=== PATIENT | female | born 1940 | race Caucasian/White ===

== ENCOUNTER 2018-06-25 13:43 | Emergency (ER) | payer MEDICARE ==
[~2018-06-25 13:43] MED LIST: FLEC100T2 PO; HCTZ25T PO; POTA10TA15 PO; RIVA20TA PO
[2018-06-25 13:54] VITALS: BP 141/79
[2018-06-25] MEDS ORDERED: LIDOcaine 1.5% w/epinephrine 1:200,000 5ml ampul IJ ONE (14:30)
[2018-06-25] MEDS ORDERED: TETanus/Pertussis (Acell)/Diphther VAC/PF (Tdap-Adult) 0.5ml syringe IM ONE (14:30)
[2018-06-25] MEDS ORDERED: LIDOcaine 1% w/epiNEPHrine 1:200,000 30ml vial IJ ONE (14:35)
== END 2018-06-25 15:28 | disposition home or self-care (01) ==
LOC: ER 13:44
DX: S61.011A Laceration without foreign body of right thumb without damage to nail, initial encounter (principal); I10 Essential (primary) hypertension; I48.91 Unspecified atrial fibrillation; Z90.49 Acquired absence of other specified parts of digestive tract; Z90.89 Acquired absence of other organs; Z79.899 Other long term (current) drug therapy; W23.0XXA Caught, crushed, jammed, or pinched between moving objects, initial encounter; Y93.89 Activity, other specified; Y92.89 Other specified places as the place of occurrence of the external cause; Y99.8 Other external cause status
CPT/HCPCS: 12001; 73140; 90471; 90715; 99283; J3490

== ENCOUNTER 2020-03-20 14:39 | Emergency (ER) | payer MEDICARE ==
[~2020-03-20] VITALS: Ht 162.6 cm; Wt 82.3 kg
[~2020-03-20 14:39] MED LIST changes: +CHOL10002 PO; +LEVO750T46 PO; +MECL-159 PO; -RIVA20TA PO
[2020-03-20 15:52] LABS: BASOPHILS # (AUTO) 0.1 X10'3 (0-0.2); BASOPHILS % (AUTO) 0.7 % (0-1); EOSINOPHILS % (AUTO) 0.3 % (0-6); HEMATOCRIT 42.5 % (35.0-45.0); HEMOGLOBIN 14.5 g/dl (12.0-16.0); LYMPHOCYTES # (AUTO) 1.2 X10'3 (1.1-4.8); LYMPHOCYTES % (AUTO) 8.9 % (21-51); MEAN PLATELET VOLUME 7.9 FL (7.4-10.4); MONOCYTES # (AUTO) 0.8 X10'3 (0-0.9); MONOCYTES % (AUTO) 5.7 % (2-12); NEUTROPHILS # (AUTO) 11.4 X10'3 (1.8-7.7); NEUTROPHILS % (AUTO) 84.4 % (42-75); PLATELET COUNT 110 X10'3 (140-440); RED BLOOD COUNT 4.83 X10'6 (4.20-5.60); WHITE BLOOD COUNT 13.5 X10'3 (4.5-11.0)
[2020-03-20 16:13] LABS: ALANINE AMINOTRANSFERASE 26 U/L (12-78); ALBUMIN 3.5 G/DL (3.4-5.0); ALBUMIN/GLOBULIN RATIO 0.8 (1.1-1.5); ALKALINE PHOSPHATASE 77 IU/L (46-116); ANION GAP 14 (8-16); ASPARTATE AMINO TRANSFERASE 29 U/L (10-37); BILIRUBIN,TOTAL 1.9 MG/DL (0.1-1.0); BLOOD UREA NITROGEN 22 MG/DL (7-18); BUN/CREATININE RATIO 22.7 (6.6-38.0); CHLORIDE 99 MMOL/L (99-107); CREATININE 0.97 MG/DL (0.40-0.90); POTASSIUM 3.1 MMOL/L (3.5-5.1); SODIUM 138 MMOL/L (135-145); TOTAL CARBON DIOXIDE 25.2 MMOL/L (24-32); TOTAL PROTEIN 8.1 G/DL (6.4-8.2); eGFR 55 ML/MIN
[2020-03-20 16:14] LABS: GLUCOSE 103 MG/DL (70-104)
[2020-03-20 16:22] LABS: LIPASE < 50 U/L (73-393); MAGNESIUM 1.6 MG/DL (1.5-2.4)
[2020-03-20] MEDS ORDERED: AMOX-422 PO (17:29)
[2020-03-20 17:42] VITALS: BP 139/94
[2020-03-20 17:43] LABS: CLARITY,URINE TURBID (Clear); COLOR,URINE YELLOW (Yellow); GLUCOSE, URINE NEGATIVE (Neg); KETONES,URINE 15 mg/dl (Neg); LEUKOCYTE ESTERASE ,URINE MODERATE (Neg); NITRITES, URINE NEGATIVE (Neg); OCCULT BLOOD,URINE SMALL (Neg); PROTEIN,URINE 30 mg/dl (Neg)
[2020-03-20 17:47] LABS: UA COLLECTION TYPE CLN CATCH MIDSTREAM
[2020-03-20 17:53] LABS: SQUAMOUS EPITHELIAL CELL,UR MANY /LPF (FEW)
[2020-03-20 17:54] LABS: BACTERIA,URINE 4+ /HPF (Neg); MUCUS STRANDS FEW /LPF (Neg); RBC,URINE 0-2 /HPF (0-2); TRANSITIONAL EPI CELLS,URINE FEW /HPF; WBC,URINE TNTC /HPF (0-4)
== END 2020-03-20 17:44 | disposition home or self-care (01) ==
LOC: ER 14:40
DX: K57.10 Diverticulosis of small intestine without perforation or abscess without bleeding (principal); I48.91 Unspecified atrial fibrillation; I10 Essential (primary) hypertension; Z90.49 Acquired absence of other specified parts of digestive tract; Z98.890 Other specified postprocedural states; Z79.899 Other long term (current) drug therapy
CPT/HCPCS: 36415; 70450; 71045; 74176; 80053; 81001; 83690; 83735; 83880; 84484; 85025; 93005; 99285

== ENCOUNTER 2021-10-03 04:59 | Inpatient (IN) | payer MEDICARE ==
[~2021-10-03] VITALS: Ht 162.6 cm; Wt 81.8 kg
[~2021-10-03 04:59] MED LIST changes: -HCTZ25T PO; +HYDR25TA5 PO
[2021-10-03] MEDS ORDERED: fentaNYL/PF 50MCG/1 ML 2ML syringe IV ONE (05:25)
[2021-10-03] MEDS ORDERED: normal saline 1000ml 1,000 ML IV ONE (05:25)
--- NOTE | 2021-10-03 05:40 | NUR ---
ADVISED DR FONTANA OF PT'S ELEVATED BP AND PT'S PAIN LEVEL
[2021-10-03 05:48] LABS: BASOPHILS % (AUTO) 0.7 % (0-1); EOSINOPHILS # (AUTO) 0.1 X10'3 (0-0.9); EOSINOPHILS % (AUTO) 1.1 % (0-6); HEMATOCRIT 37.1 % (35.0-45.0); HEMOGLOBIN 12.2 g/dl (12.0-16.0); LYMPHOCYTES % (AUTO) 14.4 % (21-51); MEAN CORPUSCULAR HEMOGLOBIN 29.5 PG (27.0-31.0); MEAN CORPUSCULAR HGB CONC 32.9 g/dL (33.0-36.5); MEAN CORPUSCULAR VOLUME 89.8 FL (78-98); MEAN PLATELET VOLUME 8.5 FL (7.4-10.4); MONOCYTES # (AUTO) 0.5 X10'3 (0-0.9); MONOCYTES % (AUTO) 6.5 % (2-12); NEUTROPHILS # (AUTO) 5.5 X10'3 (1.8-7.7); NEUTROPHILS % (AUTO) 77.3 % (42-75); PLATELET COUNT 106 X10'3 (140-440); RED BLOOD COUNT 4.14 X10'6 (4.20-5.60); RED CELL DISTRIBUTION WIDTH 17.8 % (11.5-14.5); WHITE BLOOD COUNT 7.2 X10'3 (4.5-11.0)
[2021-10-03 06:01] LABS: ALANINE AMINOTRANSFERASE 23 U/L (12-78); ALBUMIN 3.1 G/DL (3.4-5.0); ALBUMIN/GLOBULIN RATIO 0.9 (1.1-1.5); ALKALINE PHOSPHATASE 82 IU/L (46-116); ANION GAP 11 (8-16); BILIRUBIN,TOTAL 0.9 MG/DL (0.1-1.0); BLOOD UREA NITROGEN 11 MG/DL (7-18); BUN/CREATININE RATIO 15.1 (6.6-38.0); CALCIUM 8.9 MG/DL (8.5-10.1); CHLORIDE 105 MMOL/L (99-107); CREATININE 0.73 MG/DL (0.40-0.90); LIPASE < 50 U/L (73-393); SODIUM 143 MMOL/L (135-145); TOTAL CARBON DIOXIDE 27.3 MMOL/L (24-32); TOTAL PROTEIN 6.6 G/DL (6.4-8.2); eGFR 76 ML/MIN
[2021-10-03 06:09] LABS: ASPARTATE AMINO TRANSFERASE 38 U/L (10-37); GLUCOSE 105 MG/DL (70-104); POTASSIUM 3.2 MMOL/L (3.5-5.1)
[2021-10-03 06:12] LABS: CLARITY,URINE CLEAR (Clear); GLUCOSE, URINE NEGATIVE (Neg); KETONES,URINE NEGATIVE (Neg); LEUKOCYTE ESTERASE ,URINE NEGATIVE (Neg); NITRITES, URINE NEGATIVE (Neg); OCCULT BLOOD,URINE TRACE-INTACT (Neg); PROTEIN,URINE NEGATIVE (Neg); UROBILINOGEN,URINE 0.2 E.U/dL (0.2-1.0)
[2021-10-03 06:18] LABS: COLOR,URINE STRAW (Yellow); UA COLLECTION TYPE CLN CATCH MIDSTREAM
[2021-10-03 06:20] LABS: BACTERIA,URINE NONE SEEN /HPF (Neg); MUCUS STRANDS NONE SEEN /LPF (Neg); RBC,URINE 0-2 /HPF (0-2); SQUAMOUS EPITHELIAL CELL,UR FEW /LPF (FEW); WBC,URINE 0-4 /HPF (0-4)
--- NOTE | 2021-10-03 07:00 | NUR ---
PT TO/FROM CT WITHOUT INCIDENT.
[2021-10-03 07:05] LABS: ETHANOL < 0.010 GM/DL (0.0-0.010); MAGNESIUM 1.5 MG/DL (1.5-2.4)
[2021-10-03] MEDS ORDERED: potassium CL 10mEq/100ml bag 100 ML IV ONE (07:15)
[2021-10-03] MEDS ORDERED: normal saline 1000ML IV soln IVB ONE (07:15)
[2021-10-03] MEDS ORDERED: magnesium 2GM in 50ml NS 50 ML IV ONE (07:15)
[2021-10-03] MEDS ORDERED: ondansetron/PF 4mg/2ml inj IV ONE (08:20)
[2021-10-03] MEDS ORDERED: ketorolac tromethamine 15mg/ml inj. IV ONE (08:20)
--- NOTE | 2021-10-03 09:50 | NUR ---
FOUND PT SITTING AT EDGE OF BED, STATES SHE IS TOO SICK TO GO HOME. REQUESTING TO BE ADMITTED D/T BEING IN PAIN AND FEELING SICK. WILL INFORM
--- NOTE | 2021-10-03 09:53 | NUR ---
DR. WOODSON AT BEDSIDE.
[2021-10-03] MEDS ORDERED: metroNIDAZOLE-Flagyl 500mg/NS 100 ML IV STA (10:08)
[2021-10-03] MEDS ORDERED: morphine 4 MG/ML inj SYRINge IV ONE (10:10)
--- NOTE | 2021-10-03 10:20 | NUR ---
LAB AT BEDSIDE TO DRAW LACTIC AND FIRST BLOOD CULTURE. FLAGYL STARTED AFTER BLOOD DRAW. MORPHINE GIVEN PER EMAR, REPORTS PAIN 02/27.
[2021-10-03] MEDS ORDERED: ciprofloxacin lact 400MG/200ML 200 ML IV SCH ×2 (10:38→20:00)
--- NOTE | 2021-10-03 11:33 | NUR ---
Karin hall in [facility] - 10/03/21 at 1135 by [email or web address] PATIENT IS DISCHARGED AND ESCORTED TO [facility].
[2021-10-03] MEDS ORDERED: potassium Cl 20 mEq SR tablet PO PRN ×2 (12:15)
[2021-10-03] MEDS ORDERED: magnesium 4gm in 100ml NS 100 ML IV PRN (12:15)
[2021-10-03] MEDS ORDERED: bisacodyl 10mg suppository rectal RC PRN (12:15)
[2021-10-03] MEDS ORDERED: ondansetron/PF 4mg/2ml inj IV PRN (12:15)
[2021-10-03] MEDS ORDERED: mag hydrox/Alum hydrox/simeth 30ml oral suspension PO PRN (12:15)
[2021-10-03] MEDS ORDERED: diphenhydrAMINE 25mg capsule PO PRN (12:15)
[2021-10-03] MEDS ORDERED: morphine 2 MG/ML inj. syringe IV PRN (12:15)
[2021-10-03] MEDS ORDERED: magnesium 2GM in 50ml NS 50 ML IV PRN (12:15)
[2021-10-03] MEDS ORDERED: HYDROcodone/acetaminophen 10/325mg tab PO PRN (12:15)
[2021-10-03] MEDS ORDERED: HYDROcodone/acetaminophen 5mg/325mg tablet PO PRN (12:15)
[2021-10-03] MEDS ORDERED: magnesium hydroxide 30ml (MOM) UD suspension PO PRN (12:15)
[2021-10-03] MEDS ORDERED: acetaminophen 325mg tablet PO PRN ×2 (12:15)
[2021-10-03] MEDS ORDERED: acetaminophen 650mg rectal suppository RC PRN (12:15)
[2021-10-03] MEDS ORDERED: magnesium Cl slow-release 64mg tablet PO PRN (12:15)
[2021-10-03] MEDS ORDERED: RIVA20TA PO (12:26)
[2021-10-03] MEDS ORDERED: VALA100031 PO (12:26)
[2021-10-03] MEDS ORDERED: GABA300C PO (12:26)
[2021-10-03] MEDS ORDERED: HYDR-3973 PO (12:26)
[2021-10-03] MEDS: morphine 2 MG/ML inj. syringe IV PRN ×2 (12:35→21:43)
[2021-10-03] MEDS: normal saline 1000ml 1,000 ML IV SCH ×2 (12:36→21:25)
[2021-10-03 13:51] LABS: HEMOGLOBIN A1C 5.3 % (4.5-6.2)
--- NOTE | 2021-10-03 13:53 | NUR ---
telephone report to glynn ureda.
--- NOTE | 2021-10-03 14:00 | NUR ---
Patient in room MED 319. I have received report from Skye LEE and had the opportunity to ask questions and assume patient care.
[2021-10-03 14:36] VITALS: BP 161/82
[2021-10-03] MEDS: ciprofloxacin lact 400MG/200ML 200 ML IV SCH ×2 (14:38→23:53)
--- NOTE | 2021-10-03 16:05 | NUR ---
I spoke with Dr. Becerra about patient still being very nauseated despite zofran, he ordered reglan 5mg q8hrs.
[2021-10-03] MEDS: metoclopramide 5 mg/ml inj IV PRN (16:13)
[2021-10-03] MEDS: metroNIDAZOLE-Flagyl 500mg/NS 100 ML IV SCH ×2 (16:14→23:53)
[2021-10-03 17:30] VITALS: BP 145/98
[2021-10-03 18:00] VITALS: BP 145/98
--- NOTE | 2021-10-03 18:38 | NUR ---
Reglan 5mg administered, patient's nausous feeling subsided. Prescribed medication administered
--- NOTE | 2021-10-03 19:00 | NUR ---
Pt reports she has had shingles for 35 days. Everything is dry and crusted over, dark red rash remains.
[2021-10-03] MEDS: K and/or MAG REPLACEMENT MC SCH (19:51)
[2021-10-03] MEDS: docusate sod 100mg capsule PO SCH (19:52)
[2021-10-03] MEDS: gabapentin 300mg capsule PO SCH (19:52)
[2021-10-03] MEDS ORDERED: heparin, porcine 5000 units/ml vial SQ SCH (20:00)
[2021-10-03] MEDS: potassium CL 10mEq/100ml bag 100 ML IV PRN (21:24)
[2021-10-03 22:00] VITALS: BP 165/105
--- NOTE | 2021-10-04 01:45 | NUR ---
Pt with extreme back pain and nausea, continues to dry heave with some bile production. IV Zofran and morphine does not seem to be working. Contacted Dr Méndez who ordered dilaudid and ativan prn and per pt request SL Zofran.
[2021-10-04] MEDS ORDERED: ONDANSETRON IV PRN (01:55)
[2021-10-04] MEDS ORDERED: NORMAL SALINE IV PRN (01:55)
[2021-10-04 02:00] VITALS: BP 158/100
[2021-10-04] MEDS: gabapentin 300mg capsule PO SCH ×4 (02:00→20:00)
[2021-10-04] MEDS ORDERED: ondansetron/PF 4mg/2ml inj IV PRN (02:00)
[2021-10-04] MEDS: HYDROmorphone inj. 0.5 MG/0.5 ML DISP.SYRIN IV PRN ×2 (02:05→20:01)
[2021-10-04] MEDS ORDERED: ondansetron 4mg rapidly disintigrating tab PO PRN (02:20)
[2021-10-04] MEDS: ondansetron 4mg rapidly disintigrating tab PO PRN ×3 (02:34→19:54)
[2021-10-04] MEDS: potassium CL 10mEq/100ml bag 100 ML IV PRN ×8 (02:43→22:49)
[2021-10-04] MEDS: HYDROmorphone 1 mg/ml syringe IV PRN ×2 (05:57→11:44)
[2021-10-04 06:04] LABS: BASOPHILS % (AUTO) 0.3 % (0-1); EOSINOPHILS % (AUTO) 0.1 % (0-6); HEMATOCRIT 36.2 % (35.0-45.0); HEMOGLOBIN 11.9 g/dl (12.0-16.0); LYMPHOCYTES # (AUTO) 0.8 X10'3 (1.1-4.8); LYMPHOCYTES % (AUTO) 8.6 % (21-51); MEAN CORPUSCULAR HEMOGLOBIN 29.4 PG (27.0-31.0); MEAN CORPUSCULAR HGB CONC 32.9 g/dL (33.0-36.5); MEAN CORPUSCULAR VOLUME 89.4 FL (78-98); MEAN PLATELET VOLUME 7.7 FL (7.4-10.4); MONOCYTES # (AUTO) 0.5 X10'3 (0-0.9); MONOCYTES % (AUTO) 5.1 % (2-12); NEUTROPHILS % (AUTO) 85.9 % (42-75); PLATELET COUNT 82 X10'3 (140-440); RED BLOOD COUNT 4.05 X10'6 (4.20-5.60); RED CELL DISTRIBUTION WIDTH 17.7 % (11.5-14.5); WHITE BLOOD COUNT 9.3 X10'3 (4.5-11.0)
[2021-10-04 06:28] LABS: ALANINE AMINOTRANSFERASE 49 U/L (12-78); ALBUMIN 2.9 G/DL (3.4-5.0); ALBUMIN/GLOBULIN RATIO 0.9 (1.1-1.5); ALKALINE PHOSPHATASE 92 IU/L (46-116); ANION GAP 13 (8-16); ASPARTATE AMINO TRANSFERASE 62 U/L (10-37); BILIRUBIN,TOTAL 1.1 MG/DL (0.1-1.0); BLOOD UREA NITROGEN 9 MG/DL (7-18); CALCIUM 8.4 MG/DL (8.5-10.1); CHLORIDE 103 MMOL/L (99-107); CHOL/HDL RATIO 2.5 (0.00-4.99); CHOLESTEROL 131 MG/DL (0-200); CREATININE 0.69 MG/DL (0.40-0.90); HDL CHOLESTEROL 53 MG/DL (35-60); LDL CHOLESTEROL 74 MG/DL (50-100); MAGNESIUM 1.4 MG/DL (1.5-2.4); PHOSPHORUS 2.9 MG/DL (2.3-4.5); SODIUM 140 MMOL/L (135-145); TOTAL CARBON DIOXIDE 24.3 MMOL/L (24-32); TOTAL PROTEIN 6.1 G/DL (6.4-8.2); TRIGLYCERIDES 53 MG/DL (20-135); eGFR 81 ML/MIN
[2021-10-04 06:56] LABS: GLUCOSE 129 MG/DL (70-104)
[2021-10-04] MEDS: rivaroxaban 20mg tablet PO SCH (08:00)
[2021-10-04] MEDS: valacyclovir 500mg tablet PO SCH (08:00)
[2021-10-04] MEDS: cholecalciferol (vitamin D3) 1,000 unit (25mcg) tablet PO SCH (08:00)
[2021-10-04] MEDS: docusate sod 100mg capsule PO SCH ×2 (08:00→20:00)
[2021-10-04] MEDS: K and/or MAG REPLACEMENT MC SCH ×2 (08:00→20:49)
[2021-10-04] MEDS: flecainide 50mg tablet PO SCH (08:00)
[2021-10-04] MEDS: LORazepam 2 mg/ml vial IV PRN ×3 (08:18→19:59)
[2021-10-04] MEDS: metoclopramide 5 mg/ml inj IV PRN ×2 (08:18→16:22)
[2021-10-04] MEDS: metroNIDAZOLE-Flagyl 500mg/NS 100 ML IV SCH ×2 (08:34→16:21)
[2021-10-04] MEDS: ciprofloxacin lact 400MG/200ML 200 ML IV SCH ×2 (08:34→19:52)
[2021-10-04] MEDS: normal saline 1000ml 1,000 ML IV SCH ×2 (08:36→18:15)
[2021-10-04 10:10] VITALS: BP 159/100
[2021-10-04] MEDS: pantoprazole 40MG/NS 100ML BAG 100 ML IV SCH ×3 (16:20→23:56)
[2021-10-04 18:00] VITALS: BP 160/80
--- NOTE | 2021-10-04 20:46 | NUR ---
2000 dose of protonix was non-admin. The order is for bid at 0800 and 1999. The 0800 dose was not given until after 1400. It did not finish until 183 so I called the pharmacy and they said go ahead and skip the 1999 dose and start back up again in the am. Addendum: 10/04/21 at 2325 by Rigo Joshua RN Note: after speaking with isaura Amezcua RN, decided to give the protonix dose that was non-admined at 1999 and just spaced the timing out part way through the night.
[2021-10-04 22:00] VITALS: BP 164/88
[2021-10-05] MEDS: LORazepam 2 mg/ml vial IV PRN ×2 (00:12→04:21)
[2021-10-05] MEDS: metoclopramide 5 mg/ml inj IV PRN (00:16)
[2021-10-05] MEDS: metroNIDAZOLE-Flagyl 500mg/NS 100 ML IV SCH ×2 (00:41→10:05)
[2021-10-05 02:00] VITALS: BP 158/83
[2021-10-05] MEDS: gabapentin 300mg capsule PO SCH ×3 (02:00→14:00)
[2021-10-05] MEDS: potassium CL 10mEq/100ml bag 100 ML IV PRN (02:02)
[2021-10-05] MEDS: HYDROmorphone inj. 0.5 MG/0.5 ML DISP.SYRIN IV PRN (03:13)
[2021-10-05] MEDS: normal saline 1000ml 1,000 ML IV SCH ×2 (04:16→14:15)
[2021-10-05] MEDS: ondansetron 4mg rapidly disintigrating tab PO PRN (04:21)
[2021-10-05 06:06] VITALS: BP 152/78
[2021-10-05 06:46] LABS: BASOPHILS % (AUTO) 0.3 % (0-1); EOSINOPHILS % (AUTO) 0.5 % (0-6); HEMOGLOBIN 11.9 g/dl (12.0-16.0); LYMPHOCYTES # (AUTO) 1.3 X10'3 (1.1-4.8); LYMPHOCYTES % (AUTO) 13.9 % (21-51); MEAN CORPUSCULAR HEMOGLOBIN 29.7 PG (27.0-31.0); MEAN CORPUSCULAR HGB CONC 33.2 g/dL (33.0-36.5); MEAN CORPUSCULAR VOLUME 89.5 FL (78-98); MONOCYTES # (AUTO) 0.7 X10'3 (0-0.9); MONOCYTES % (AUTO) 7.9 % (2-12); NEUTROPHILS # (AUTO) 7.1 X10'3 (1.8-7.7); NEUTROPHILS % (AUTO) 77.4 % (42-75); PLATELET COUNT 94 X10'3 (140-440); RED BLOOD COUNT 4.02 X10'6 (4.20-5.60); RED CELL DISTRIBUTION WIDTH 17.7 % (11.5-14.5); WHITE BLOOD COUNT 9.2 X10'3 (4.5-11.0)
[2021-10-05 07:19] LABS: ALANINE AMINOTRANSFERASE 42 U/L (12-78); ALBUMIN 2.8 G/DL (3.4-5.0); ALBUMIN/GLOBULIN RATIO 0.9 (1.1-1.5); ALKALINE PHOSPHATASE 83 IU/L (46-116); ANION GAP 11 (8-16); ASPARTATE AMINO TRANSFERASE 39 U/L (10-37); BILIRUBIN,TOTAL 0.9 MG/DL (0.1-1.0); BLOOD UREA NITROGEN 11 MG/DL (7-18); BUN/CREATININE RATIO 13.6 (6.6-38.0); CALCIUM 8.4 MG/DL (8.5-10.1); CHLORIDE 105 MMOL/L (99-107); CREATININE 0.81 MG/DL (0.40-0.90); MAGNESIUM 2.4 MG/DL (1.5-2.4); PHOSPHORUS 2.6 MG/DL (2.3-4.5); SODIUM 140 MMOL/L (135-145); TOTAL PROTEIN 5.8 G/DL (6.4-8.2); eGFR 68 ML/MIN
[2021-10-05 07:21] LABS: GLUCOSE 97 MG/DL (70-104)
[2021-10-05] MEDS: rivaroxaban 20mg tablet PO SCH (08:00)
[2021-10-05] MEDS: valacyclovir 500mg tablet PO SCH (08:00)
[2021-10-05] MEDS ORDERED: HYDROchlorothiazide 25mg tablet PO SCH (08:00)
[2021-10-05] MEDS: flecainide 50mg tablet PO SCH (08:00)
[2021-10-05] MEDS: K and/or MAG REPLACEMENT MC SCH (08:00)
[2021-10-05] MEDS: docusate sod 100mg capsule PO SCH (08:00)
[2021-10-05] MEDS: cholecalciferol (vitamin D3) 1,000 unit (25mcg) tablet PO SCH (08:00)
[2021-10-05] MEDS: pantoprazole 40MG/NS 100ML BAG 100 ML IV SCH (10:05)
[2021-10-05] MEDS: ciprofloxacin lact 400MG/200ML 200 ML IV SCH (10:05)
[2021-10-05 10:10] VITALS: BP 179/91
[2021-10-05 15:04] VITALS: BP 186/100
--- NOTE | 2021-10-05 15:45 | NUR ---
Pt left in stable condition with belongings. Pt being transferred to [facility] via [facility]
== END 2021-10-05 15:30 | DRG 392 ==
LOC: ER 05:00 → ED HOLD 12:17 → MED 3N 14:08
PROVIDERS: ADMIT Family Medicine; ATTEND Family Medicine
DX: K52.9 Noninfective gastroenteritis and colitis, unspecified (principal); K21.9 Gastro-esophageal reflux disease without esophagitis; E87.6 Hypokalemia; B02.9 Zoster without complications; I10 Essential (primary) hypertension; Z66 Do not resuscitate; E86.0 Dehydration; I48.91 Unspecified atrial fibrillation; Z60.2 Problems related to living alone; Z20.822 Contact with and (suspected) exposure to COVID-19; K29.00 Acute gastritis without bleeding; Z79.01 Long term (current) use of anticoagulants; Z79.899 Other long term (current) drug therapy; Z82.49 Family history of ischemic heart disease and other diseases of the circulatory system; Z86.011 Personal history of benign neoplasm of the brain; Z87.891 Personal history of nicotine dependence; Z90.49 Acquired absence of other specified parts of digestive tract
CPT/HCPCS: 36415; 74176; 80053; 80061; 80320; 81001; 83036; 83605; 83690; 83735; 83880; 84100; 84145; 84484; 85025; 87040; 87081; 87635; 93005; 96361; 96365; 96366; 96367; 96375; 97116; 97161; 97530; 99285; C9113; C9803; G0378; J0744; J1170; J1885; J2060; J2270; J2405; J2765; J3010; J3475; J3480; J3490; J7030

== ENCOUNTER 2021-10-09 09:08 | Emergency (ER) | payer MEDICARE ==
[~2021-10-09] VITALS: Ht 162.6 cm; Wt 79.5 kg
[~2021-10-09 09:08] MED LIST changes: +GABA300C PO; +HYDR-3973 PO; -LEVO750T46 PO; -MECL-159 PO; +RIVA20TA PO; +VALA100031 PO
[2021-10-09] MEDS ORDERED: LORazepam 2 mg/ml vial IV ONE (09:25)
[2021-10-09] MEDS ORDERED: famotidine/PF 10 mg/ml inj IV ONE (09:25)
[2021-10-09] MEDS ORDERED: normal saline 1000ML IV soln IV ONE (09:25)
[2021-10-09] MEDS ORDERED: metoclopramide 5 mg/ml inj IV ONE (09:25)
--- NOTE | 2021-10-09 09:28 | NUR ---
pt vomiting bile, helped sit up, changed gown. 50cc
[2021-10-09 10:07] LABS: BASOPHILS % (AUTO) 0.3 % (0-1); EOSINOPHILS # (AUTO) 0.1 X10'3 (0-0.9); EOSINOPHILS % (AUTO) 0.8 % (0-6); HEMATOCRIT 40.5 % (35.0-45.0); HEMOGLOBIN 13.5 g/dl (12.0-16.0); LYMPHOCYTES # (AUTO) 0.5 X10'3 (1.1-4.8); LYMPHOCYTES % (AUTO) 5.2 % (21-51); MEAN CORPUSCULAR HGB CONC 33.3 g/dL (33.0-36.5); MEAN PLATELET VOLUME 7.7 FL (7.4-10.4); MONOCYTES # (AUTO) 0.6 X10'3 (0-0.9); MONOCYTES % (AUTO) 5.7 % (2-12); NEUTROPHILS # (AUTO) 8.9 X10'3 (1.8-7.7); PLATELET COUNT 96 X10'3 (140-440); WHITE BLOOD COUNT 10.2 X10'3 (4.5-11.0)
[2021-10-09 10:25] LABS: ALANINE AMINOTRANSFERASE 29 U/L (12-78); ALBUMIN/GLOBULIN RATIO 0.9 (1.1-1.5); ALKALINE PHOSPHATASE 78 IU/L (46-116); ANION GAP 7 (8-16); ASPARTATE AMINO TRANSFERASE 29 U/L (10-37); BLOOD UREA NITROGEN 11 MG/DL (7-18); BUN/CREATININE RATIO 13.3 (6.6-38.0); CALCIUM 8.3 MG/DL (8.5-10.1); CHLORIDE 103 MMOL/L (99-107); CREATININE 0.83 MG/DL (0.40-0.90); POTASSIUM 3.7 MMOL/L (3.5-5.1); SODIUM 140 MMOL/L (135-145); TOTAL CARBON DIOXIDE 29.7 MMOL/L (24-32); TOTAL PROTEIN 6.2 G/DL (6.4-8.2); eGFR 66 ML/MIN
[2021-10-09 10:30] LABS: ANISOCYTOSIS 1+; GLUCOSE 135 MG/DL (70-104); MAGNESIUM 1.7 MG/DL (1.5-2.4); PLATELET ESTIMATE DECREASED; TOTAL CELLS COUNTED 100
[2021-10-09 11:12] LABS: CLARITY,URINE SLIGHTLY CLOUDY (Clear); COLOR,URINE YELLOW (Yellow); GLUCOSE, URINE NEGATIVE (Neg); KETONES,URINE NEGATIVE (Neg); LEUKOCYTE ESTERASE ,URINE NEGATIVE (Neg); NITRITES, URINE NEGATIVE (Neg); OCCULT BLOOD,URINE TRACE-INTACT (Neg); PH,URINE 6.5 (4.8-8.0); PROTEIN,URINE NEGATIVE (Neg); UROBILINOGEN,URINE 0.2 E.U/dL (0.2-1.0)
[2021-10-09 11:17] LABS: UA COLLECTION TYPE NON-SPECIFIED
[2021-10-09 11:52] LABS: BACTERIA,URINE 1+ /HPF (Neg); MUCUS STRANDS FEW /LPF (Neg); RBC,URINE 0-2 /HPF (0-2); SQUAMOUS EPITHELIAL CELL,UR MODERATE /LPF (FEW); TRANSITIONAL EPI CELLS,URINE FEW /HPF; WBC,URINE 0-4 /HPF (0-4)
--- NOTE | 2021-10-09 12:18 | NUR ---
report given to yonatan at [facility]
[2021-10-09 14:07] VITALS: BP 140/88
== END 2021-10-09 14:08 | disposition home or self-care (01) ==
LOC: ER 09:08
DX: R11.15 Cyclical vomiting syndrome unrelated to migraine (principal); R10.13 Epigastric pain; R11.2 Nausea with vomiting, unspecified; R19.7 Diarrhea, unspecified; I48.91 Unspecified atrial fibrillation; I10 Essential (primary) hypertension; Z90.49 Acquired absence of other specified parts of digestive tract; Z90.89 Acquired absence of other organs; Z60.2 Problems related to living alone; Z88.6 Allergy status to analgesic agent; Z88.8 Allergy status to other drugs, medicaments and biological substances; Z79.2 Long term (current) use of antibiotics; Z79.899 Other long term (current) drug therapy
CPT/HCPCS: 36415; 80053; 81001; 83735; 84145; 85007; 85025; 96361; 96374; 96375; 99284; J2060; J2765; J3490; J7030

== ENCOUNTER 2022-07-01 15:05 | Inpatient (IN) | payer MEDICARE ==
[~2022-07-01] VITALS: Ht 160 cm; Wt 79.0 kg
[2022-07-01] MEDS ORDERED: ondansetron/PF 4mg/2ml inj IV ONE ×2 (16:10→22:05)
[2022-07-01] MEDS ORDERED: normal saline 1000ML IV soln IVB ONE (16:10)
[2022-07-01 16:29] LABS: BASOPHILS % (AUTO) 0.4 % (0-1); EOSINOPHILS # (AUTO) 0.1 X10'3 (0-0.9); EOSINOPHILS % (AUTO) 0.9 % (0-6); HEMATOCRIT 40.3 % (35.0-45.0); HEMOGLOBIN 13.4 g/dl (12.0-16.0); LYMPHOCYTES # (AUTO) 0.9 X10'3 (1.1-4.8); LYMPHOCYTES % (AUTO) 11.7 % (21-51); MEAN CORPUSCULAR HEMOGLOBIN 29.8 PG (27.0-31.0); MEAN CORPUSCULAR HGB CONC 33.2 g/dL (33.0-36.5); MEAN CORPUSCULAR VOLUME 89.8 FL (78-98); MEAN PLATELET VOLUME 8.9 FL (7.4-10.4); MONOCYTES # (AUTO) 0.4 X10'3 (0-0.9); MONOCYTES % (AUTO) 5.6 % (2-12); NEUTROPHILS # (AUTO) 6.1 X10'3 (1.8-7.7); NEUTROPHILS % (AUTO) 81.4 % (42-75); PLATELET COUNT 81 X10'3 (140-440); RED BLOOD COUNT 4.49 X10'6 (4.20-5.60); RED CELL DISTRIBUTION WIDTH 14.1 % (11.5-14.5); WHITE BLOOD COUNT 7.5 X10'3 (4.5-11.0)
[2022-07-01 16:44] LABS: ALANINE AMINOTRANSFERASE 37 U/L (12-78); ALBUMIN 3.5 G/DL (3.4-5.0); ALKALINE PHOSPHATASE 108 IU/L (46-116); ANION GAP 9 (8-16); ASPARTATE AMINO TRANSFERASE 46 U/L (10-37); BILIRUBIN,TOTAL 0.9 MG/DL (0.1-1.0); BLOOD UREA NITROGEN 20 MG/DL (7-18); BUN/CREATININE RATIO 21.7 (6.6-38.0); CALCIUM 9.1 MG/DL (8.5-10.1); CHLORIDE 103 MMOL/L (99-107); CREATININE 0.92 MG/DL (0.40-0.90); SODIUM 140 MMOL/L (135-145); TOTAL CARBON DIOXIDE 28.1 MMOL/L (24-32); TOTAL PROTEIN 6.9 G/DL (6.4-8.2); eGFR 58 ML/MIN
[2022-07-01 16:46] LABS: POTASSIUM 2.6 MMOL/L (3.5-5.1)
[2022-07-01 16:48] LABS: GLUCOSE 130 MG/DL (70-104)
[2022-07-01] MEDS ORDERED: potassium Cl 20 mEq SR tablet PO STA (16:51)
[2022-07-01] MEDS ORDERED: potassium Cl 10 mEq/100mL bag IV ONE (16:55)
[2022-07-01] MEDS ORDERED: diazepam inj 5 MG/ML inj. IV ONE (16:55)
[2022-07-01 17:31] LABS: CLARITY,URINE CLEAR (Clear); COLOR,URINE YELLOW (Yellow); GLUCOSE, URINE NEGATIVE (Neg); KETONES,URINE NEGATIVE (Neg); LEUKOCYTE ESTERASE ,URINE NEGATIVE (Neg); NITRITES, URINE NEGATIVE (Neg); OCCULT BLOOD,URINE NEGATIVE (Neg); PROTEIN,URINE NEGATIVE (Neg); UROBILINOGEN,URINE 0.2 E.U/dL (0.2-1.0)
[2022-07-01 17:52] LABS: UA COLLECTION TYPE VOIDED
[2022-07-01] MEDS ORDERED: morphine 4 MG/ML inj SYRINge IV ONE (22:05)
[2022-07-01] MEDS ORDERED: hydrALAZINE 20mg/ml inj. IV PRN (23:20)
[2022-07-02] MEDS ORDERED: diphenhydrAMINE 50 mg/ml inj IV PRN (01:30)
[2022-07-02] MEDS ORDERED: mag hydrox/Alum hydrox/simeth 30ml oral suspension PO PRN (01:30)
[2022-07-02] MEDS ORDERED: magnesium Cl slow-release 64mg tablet PO PRN (01:30)
[2022-07-02] MEDS ORDERED: diphenhydrAMINE 25mg capsule PO PRN (01:30)
[2022-07-02] MEDS ORDERED: magnesium 4gm in 100ml NS 100 ML IV PRN (01:30)
[2022-07-02] MEDS ORDERED: magnesium hydroxide 30ml (MOM) UD suspension PO PRN (01:30)
[2022-07-02] MEDS ORDERED: normal saline 1000ml 1,000 ML IV SCH (01:30)
[2022-07-02] MEDS ORDERED: bisacodyl 10mg suppository rectal RC PRN (01:30)
[2022-07-02] MEDS ORDERED: ondansetron 4mg rapidly disintigrating tab PO PRN (01:30)
[2022-07-02] MEDS ORDERED: potassium Cl 40MEQ/1/2NS 520ml 520 ML IV PRN (01:30)
[2022-07-02] MEDS ORDERED: potassium Cl 20 mEq SR tablet PO PRN (01:30)
[2022-07-02] MEDS: pantoprazole 40mg Tablet.DR PO SCH (07:30)
[2022-07-02] MEDS: docusate sod 100mg capsule PO SCH ×2 (08:00→20:06)
[2022-07-02] MEDS: K and/or MAG REPLACEMENT MC SCH ×2 (08:00→20:10)
[2022-07-02] MEDS ORDERED: HYDROcodone/acetaminophen 5mg/325mg tablet PO PRN (08:35)
[2022-07-02] MEDS: morphine 2 MG/ML inj. syringe IV PRN ×3 (08:59→21:03)
[2022-07-02 09:17] LABS: APTT 33 SECONDS (22-32); MAGNESIUM 1.6 MG/DL (1.5-2.4); PHOSPHORUS 2.5 MG/DL (2.3-4.5)
[2022-07-02] MEDS ORDERED: LYR75C PO (09:17)
[2022-07-02] MEDS: potassium Cl 20 mEq SR tablet PO PRN ×3 (09:29→16:08)
[2022-07-02 09:50] VITALS: BP 102/75
[2022-07-02] MEDS: ondansetron/PF 4mg/2ml inj IV PRN ×2 (12:34→21:00)
[2022-07-02] MEDS: HYDROcodone/acetaminophen 5mg/325mg tablet PO PRN (12:36)
[2022-07-02] MEDS ORDERED: FURO20TA4 PO (14:51)
[2022-07-02 18:00] VITALS: BP 161/64
--- NOTE | 2022-07-02 18:15 | NUR ---
gave report to glynn reyes
--- NOTE | 2022-07-02 18:30 | NUR ---
Patient in room [facility]QUEL[facility] 340. I have received report from HALLE LEE and had the opportunity to ask questions and assume patient care.
[2022-07-02] MEDS ORDERED: temazepam 15mg capsule PO PRN (21:00)
[2022-07-02 22:00] VITALS: BP 149/59
[2022-07-03] MEDS: HYDROcodone/acetaminophen 5mg/325mg tablet PO PRN (02:18)
[2022-07-03] MEDS: morphine 2 MG/ML inj. syringe IV PRN (04:37)
[2022-07-03 05:49] LABS: BASOPHILS % (AUTO) 0.4 % (0-1); EOSINOPHILS # (AUTO) 0.1 X10'3 (0-0.9); EOSINOPHILS % (AUTO) 1.4 % (0-6); HEMATOCRIT 35.1 % (35.0-45.0); HEMOGLOBIN 11.9 g/dl (12.0-16.0); LYMPHOCYTES # (AUTO) 0.8 X10'3 (1.1-4.8); LYMPHOCYTES % (AUTO) 9.6 % (21-51); MEAN CORPUSCULAR HEMOGLOBIN 30.2 PG (27.0-31.0); MEAN CORPUSCULAR HGB CONC 33.9 g/dL (33.0-36.5); MEAN CORPUSCULAR VOLUME 89.1 FL (78-98); MEAN PLATELET VOLUME 9.3 FL (7.4-10.4); MONOCYTES # (AUTO) 0.7 X10'3 (0-0.9); MONOCYTES % (AUTO) 9.1 % (2-12); NEUTROPHILS # (AUTO) 6.4 X10'3 (1.8-7.7); NEUTROPHILS % (AUTO) 79.5 % (42-75); PLATELET COUNT 60 X10'3 (140-440); RED BLOOD COUNT 3.94 X10'6 (4.20-5.60)
[2022-07-03 06:00] VITALS: BP 144/66
[2022-07-03 06:03] LABS: ALANINE AMINOTRANSFERASE 92 U/L (12-78); ALBUMIN 2.6 G/DL (3.4-5.0); ALBUMIN/GLOBULIN RATIO 0.8 (1.1-1.5); ALKALINE PHOSPHATASE 159 IU/L (46-116); ANION GAP 6 (8-16); ASPARTATE AMINO TRANSFERASE 103 U/L (10-37); BILIRUBIN,TOTAL 1.2 MG/DL (0.1-1.0); BLOOD UREA NITROGEN 18 MG/DL (7-18); BUN/CREATININE RATIO 19.4 (6.6-38.0); CALCIUM 8.4 MG/DL (8.5-10.1); CHLORIDE 107 MMOL/L (99-107); CREATININE 0.93 MG/DL (0.40-0.90); POTASSIUM 4.6 MMOL/L (3.5-5.1); SODIUM 139 MMOL/L (135-145); TOTAL CARBON DIOXIDE 26.4 MMOL/L (24-32); TOTAL PROTEIN 5.7 G/DL (6.4-8.2); eGFR 58 ML/MIN
[2022-07-03 06:12] LABS: GLUCOSE 123 MG/DL (70-104)
--- NOTE | 2022-07-03 06:30 | NUR ---
Problems reprioritized. Patient report given, questions answered & plan of care reviewed with JOAO LEE.
[2022-07-03] MEDS: K and/or MAG REPLACEMENT MC SCH (08:00)
[2022-07-03] MEDS ORDERED: HYDROcodone/acetaminophen 5mg/325mg tablet PO PRN ×2 (08:05)
[2022-07-03] MEDS ORDERED: morphine 2 MG/ML inj. syringe IV PRN (08:05)
[2022-07-03] MEDS: pantoprazole 40mg Tablet.DR PO SCH (09:08)
[2022-07-03] MEDS: docusate sod 100mg capsule PO SCH (09:08)
[2022-07-03] MEDS ORDERED: cyclobenzaprine 10mg tablet PO PRN (09:50)
[2022-07-03 11:00] VITALS: BP 166/85
== END 2022-07-03 13:20 | DRG 536 ==
LOC: ER 15:05 → ED HOLD 07-02 01:31 → EDBEDREQ 07-02 05:09 → SUR 3N 07-02 07:14
PROVIDERS: ADMIT Family Medicine; ATTEND Family Medicine
DX: S72.112A Displaced fracture of greater trochanter of left femur, initial encounter for closed fracture (principal); I50.22 Chronic systolic (congestive) heart failure; I13.0 Hypertensive heart and chronic kidney disease with heart failure and stage 1 through stage 4 chronic kidney disease, or unspecified chronic kidney disease; I48.20 Chronic atrial fibrillation, unspecified; K86.1 Other chronic pancreatitis; S70.02XA Contusion of left hip, initial encounter; Z79.899 Other long term (current) drug therapy; Z20.822 Contact with and (suspected) exposure to COVID-19; K57.90 Diverticulosis of intestine, part unspecified, without perforation or abscess without bleeding; W01.0XXA Fall on same level from slipping, tripping and stumbling without subsequent striking against object, initial encounter; Z60.2 Problems related to living alone; Y93.01 Activity, walking, marching and hiking; R26.9 Unspecified abnormalities of gait and mobility; E87.6 Hypokalemia; N18.9 Chronic kidney disease, unspecified; Z79.01 Long term (current) use of anticoagulants; Z87.891 Personal history of nicotine dependence; Z88.6 Allergy status to analgesic agent; Z90.49 Acquired absence of other specified parts of digestive tract; Y92.512 Supermarket, store or market as the place of occurrence of the external cause; Y99.8 Other external cause status; Z88.5 Allergy status to narcotic agent; W19.XXXA Unspecified fall, initial encounter; Y92.009 Unspecified place in unspecified non-institutional (private) residence as the place of occurrence of the external cause
CPT/HCPCS: 36415; 71045; 73502; 74176; 80053; 81003; 83735; 83880; 84100; 84132; 85025; 85610; 85730; 86885; 86900; 86901; 87081; 87811; 93005; 97110; 97161; 97530; 99285; G0378; J2270; J2405; J3360; J3480; J7030

== ENCOUNTER 2022-08-11 02:46 | Inpatient (IN) | payer MEDICARE ==
[~2022-08-11] VITALS: Ht 162.6 cm; Wt 77.7 kg
[2022-08-11] VITALS (23 sets, daily range): BP systolic 92–161; BP diastolic 54–76
[~2022-08-11 02:46] MED LIST changes: +FURO20TA4 PO; -GABA300C PO; +LYR75C PO
[2022-08-11] MEDS ORDERED: MILK OF MAGNESIA PO (03:10)
[2022-08-11] MEDS ORDERED: [UNRECOGNIZED DRUG - OTHER] PO (03:21)
[2022-08-11] MEDS ORDERED: Calcium Carbonate PO (03:24)
[2022-08-11] MEDS ORDERED: lidoderm patch (03:29)
[2022-08-11] MEDS ORDERED: LIDOcaine 2% 10ml TOPICAL JELLY (Urojet) TP ONE (03:30)
[2022-08-11] MEDS ORDERED: CYCLOBENZAPRINE HCL PO (03:34)
[2022-08-11] MEDS ORDERED: mag hydrox/Alum hydrox/simeth 30ml oral suspension PO PRN (04:00)
[2022-08-11] MEDS ORDERED: morphine 2 MG/ML inj. syringe IV PRN ×2 (04:00→12:20)
[2022-08-11] MEDS ORDERED: magnesium hydroxide 30ml (MOM) UD suspension PO PRN (04:00)
[2022-08-11 04:40] LABS: HEMOGLOBIN 11.1 g/dl (12.0-16.0); WHITE BLOOD COUNT 3.9 X10'3 (4.5-11.0)
[2022-08-11 04:41] LABS: BASOPHILS % (AUTO) 0.7 % (0-1); EOSINOPHILS # (AUTO) 0.1 X10'3 (0-0.9); EOSINOPHILS % (AUTO) 1.4 % (0-6); HEMATOCRIT 34.3 % (35.0-45.0); LYMPHOCYTES # (AUTO) 0.9 X10'3 (1.1-4.8); LYMPHOCYTES % (AUTO) 22.1 % (21-51); MEAN CORPUSCULAR HEMOGLOBIN 27.9 PG (27.0-31.0); MEAN CORPUSCULAR HGB CONC 32.4 g/dL (33.0-36.5); MEAN PLATELET VOLUME 8.2 FL (7.4-10.4); MONOCYTES # (AUTO) 0.6 X10'3 (0-0.9); MONOCYTES % (AUTO) 14.9 % (2-12); NEUTROPHILS # (AUTO) 2.4 X10'3 (1.8-7.7); NEUTROPHILS % (AUTO) 60.9 % (42-75); PLATELET COUNT 103 X10'3 (140-440); RED BLOOD COUNT 3.98 X10'6 (4.20-5.60); RED CELL DISTRIBUTION WIDTH 14.6 % (11.5-14.5)
[2022-08-11] MEDS ORDERED: DOCUSATE SODIUM PO (04:44)
[2022-08-11] MEDS ORDERED: multivitamin PO (04:46)
[2022-08-11 04:54] LABS: ALANINE AMINOTRANSFERASE 16 U/L (12-78); ALBUMIN 2.3 G/DL (3.4-5.0); ALBUMIN/GLOBULIN RATIO 0.6 (1.1-1.5); ALKALINE PHOSPHATASE 95 IU/L (46-116); ANION GAP 5 (8-16); ASPARTATE AMINO TRANSFERASE 28 U/L (10-37); BILIRUBIN,TOTAL 0.7 MG/DL (0.1-1.0); BLOOD UREA NITROGEN 15 MG/DL (7-18); CALCIUM 8.4 MG/DL (8.5-10.1); CHLORIDE 100 MMOL/L (99-107); CREATININE 0.94 MG/DL (0.40-0.90); SODIUM 135 MMOL/L (135-145); TOTAL CARBON DIOXIDE 29.7 MMOL/L (24-32); TOTAL PROTEIN 6.2 G/DL (6.4-8.2); eGFR 57 ML/MIN
[2022-08-11 04:55] LABS: GLUCOSE 90 MG/DL (70-104)
[2022-08-11 04:57] LABS: CLARITY,URINE CLEAR (Clear); COLOR,URINE YELLOW (Yellow); GLUCOSE, URINE NEGATIVE (Neg); KETONES,URINE NEGATIVE (Neg); LEUKOCYTE ESTERASE ,URINE NEGATIVE (Neg); NITRITES, URINE NEGATIVE (Neg); OCCULT BLOOD,URINE NEGATIVE (Neg); PROTEIN,URINE NEGATIVE (Neg); UROBILINOGEN,URINE 0.2 E.U/dL (0.2-1.0)
[2022-08-11 04:58] LABS: POTASSIUM 2.9 MMOL/L (3.5-5.1)
[2022-08-11 05:05] LABS: UA COLLECTION TYPE FOLEY CATH
[2022-08-11] MEDS ORDERED: LIDO1ADH78 TP (05:19)
[2022-08-11] MEDS ORDERED: ONDA-103 PO (05:19)
[2022-08-11] MEDS ORDERED: MULT-1085 PO (05:19)
[2022-08-11] MEDS ORDERED: DOCU100C68 PO (05:19)
[2022-08-11] MEDS ORDERED: MAGN24002 PO (05:19)
[2022-08-11] MEDS ORDERED: CYCL5TAB PO (05:19)
[2022-08-11] MEDS ORDERED: CALC500T11 PO (05:19)
--- NOTE | 2022-08-11 05:34 | NUR ---
Patient in room JAQUELINE 356. I have received report from Delano ROBERTS and had the opportunity to ask questions and assume patient care. Addendum: 08/11/22 at 0552 by Chelo Landaverde RN Amended: Links added.
--- NOTE | 2022-08-11 05:34 | NUR ---
Pt arrived via ko, c/o pain when moved to bed. Pt has f/c and Tele was placed. VS taken, Pt oriented to room, call light w/in reach. Addendum: 08/11/22 at 0552 by Chelo Landaverde RN Amended: Links added.
--- NOTE | 2022-08-11 06:12 | NUR ---
Problems reprioritized. Patient report given, questions answered & plan of care reviewed with Aggie LEE. Addendum: 08/11/22 at 0612 by Chelo Landaverde RN Amended: Links added.
--- NOTE | 2022-08-11 06:15 | NUR ---
received report from glynn colon
[2022-08-11] MEDS ORDERED: potassium Cl 40MEQ/1/2NS 520ml 520 ML IV PRN ×2 (07:20)
[2022-08-11] MEDS ORDERED: potassium Cl 20 mEq SR tablet PO PRN (07:20)
[2022-08-11] MEDS: furosemide 20 MG/2 ML vial IV SCH ×2 (07:44→22:43)
[2022-08-11] MEDS: potassium Cl 20 mEq SR tablet PO PRN ×3 (07:44→22:42)
[2022-08-11] MEDS: docusate sod 100mg capsule PO SCH ×2 (07:44→22:43)
[2022-08-11] MEDS: ondansetron/PF 4mg/2ml inj IV PRN (09:05)
[2022-08-11] MEDS: morphine 2 MG/ML inj. syringe IV PRN ×2 (09:07→13:02)
[2022-08-11] MEDS ORDERED: labetalol 20mg/4ml (5mg/ml) syringe IV PRN (12:20)
[2022-08-11] MEDS ORDERED: ringers solution, lacted 1,000 ML IV ONE (12:20)
[2022-08-11] MEDS ORDERED: hydrALAZINE 20mg/ml inj. IV PRN (12:20)
[2022-08-11] MEDS ORDERED: ringers solution, lacted 1,000 ML IV SCH (12:20)
[2022-08-11] MEDS ORDERED: ondansetron/PF 4mg/2ml inj IV PRN (12:20)
[2022-08-11] MEDS ORDERED: fentaNYL/PF 50MCG/1 ML 2ML syringe IV PRN (12:20)
--- NOTE | 2022-08-11 14:56 | NUR ---
gave report to glynn renteria in recovery prior to pt going to surgery
--- NOTE | 2022-08-11 15:59 | NUR ---
pt wheeled down to OR at this time
[2022-08-11] MEDS ORDERED: morphine 10mg/ml inj. ONE (16:29)
[2022-08-11] MEDS ORDERED: midazolam 1 mg/ML 2ml injection ONE (16:29)
[2022-08-11] MEDS ORDERED: ondansetron/PF 4mg/2ml inj ONE (16:30)
[2022-08-11] MEDS ORDERED: propofol inj 20 ML IV ONE (16:30)
[2022-08-11] MEDS ORDERED: BUPIVAcaine 0.5% inj/PF 30 ML ONE (16:55)
[2022-08-11] MEDS ORDERED: dexamethasone sod phosphate 10mg/ml inj ONE (16:56)
[2022-08-11] MEDS ORDERED: sevoflurane 250ml liquid IH ONE (16:56)
[2022-08-11] MEDS ORDERED: ceFAZolin 1000mg inj ONE ×2 (17:08)
[2022-08-11] MEDS ORDERED: albumin (Human) 5% 250ml 250 ML IV ONE ×2 (17:10→17:18)
[2022-08-11] MEDS ORDERED: BUPIVAcaine/PF 5 mg/ml 10ml IJ ONE (17:24)
[2022-08-11] MEDS ORDERED: fentaNYL/PF 50MCG/1 ML 2ML syringe ONE (17:25)
[2022-08-11] MEDS ORDERED: naloxone 0.4 mg/ml inj ONE (17:49)
--- NOTE | 2022-08-11 18:00 | NUR ---
PT ARRIVED TO RR VIA BED ACCOMPANIED BY DR RAMOS-ANESTHESIA REPORT GIVEN, PT AWAKE AND PAINFUL IN LEFT HIP, VSS, +2 PULSES TO BLE, DR PRESENT AND GIVING MORE PAIN MEDICATION, BUT PIV HUB LOOSE-MEDICATION DELAYED IN GOING IN, FIXED LOOSE CONNECTION AND MEDS GIVEN FOR PAIN. ISLAND DRSG X2 TO LEFT HIP WITH SOME BLEEDING NOTED-CIRCLED, F/C IN PLACE
[2022-08-11] MEDS: fentaNYL/PF 50MCG/1 ML 2ML syringe IV PRN ×2 (18:14→18:44)
--- NOTE | 2022-08-11 18:26 | NUR ---
gave report to glynn may
[2022-08-11] MEDS: morphine 4 MG/ML inj SYRINge IV PRN ×2 (18:49→19:14)
--- NOTE | 2022-08-11 19:50 | NUR ---
PT DOING WELL, PAIN UNDER BETTER CONTROL-09/27, +PULSES BLE, NO CHANGE IN DRSG TO LEFT HIP, VSS, RESTING QUIETLY, REPORT CALLED TO DARELL RN-ALL QUESTIONS ANSWERED, TAKEN VIA BED BACK TO ROOM, PRIMARY RN IN TO RECEIVE PT, BED LOW AND LOCKED, CALL LIGHT IN REACH.
[2022-08-12] VITALS (8 sets, daily range): BP systolic 91–147; BP diastolic 50–93
[2022-08-12] MEDS: ceFAZolin/D5W- 1GM premix 50 ML IV SCH ×3 (00:39→15:32)
[2022-08-12] MEDS: morphine 2 MG/ML inj. syringe IV PRN (05:41)
[2022-08-12 06:15] LABS: BASOPHILS % (AUTO) 0.2 % (0-1); EOSINOPHILS % (AUTO) 0 % (0-6); HEMATOCRIT 25.1 % (35.0-45.0); HEMOGLOBIN 8.3 g/dl (12.0-16.0); LYMPHOCYTES # (AUTO) 0.7 X10'3 (1.1-4.8); LYMPHOCYTES % (AUTO) 12.1 % (21-51); MEAN CORPUSCULAR HGB CONC 32.9 g/dL (33.0-36.5); MEAN CORPUSCULAR VOLUME 85.2 FL (78-98); MEAN PLATELET VOLUME 8.5 FL (7.4-10.4); MONOCYTES # (AUTO) 0.4 X10'3 (0-0.9); MONOCYTES % (AUTO) 7.3 % (2-12); NEUTROPHILS # (AUTO) 4.4 X10'3 (1.8-7.7); NEUTROPHILS % (AUTO) 80.4 % (42-75); PLATELET COUNT 95 X10'3 (140-440); RED BLOOD COUNT 2.95 X10'6 (4.20-5.60); RED CELL DISTRIBUTION WIDTH 14.6 % (11.5-14.5); WHITE BLOOD COUNT 5.4 X10'3 (4.5-11.0)
[2022-08-12 06:25] LABS: ALANINE AMINOTRANSFERASE 52 U/L (12-78); ALBUMIN 2.2 G/DL (3.4-5.0); ALBUMIN/GLOBULIN RATIO 0.7 (1.1-1.5); ALKALINE PHOSPHATASE 190 IU/L (46-116); ANION GAP 4 (8-16); ASPARTATE AMINO TRANSFERASE 99 U/L (10-37); BILIRUBIN,TOTAL 0.7 MG/DL (0.1-1.0); BLOOD UREA NITROGEN 21 MG/DL (7-18); BUN/CREATININE RATIO 18.8 (6.6-38.0); CHLORIDE 104 MMOL/L (99-107); CREATININE 1.12 MG/DL (0.40-0.90); POTASSIUM 4.6 MMOL/L (3.5-5.1); SODIUM 138 MMOL/L (135-145); TOTAL CARBON DIOXIDE 29.6 MMOL/L (24-32); TOTAL PROTEIN 5.2 G/DL (6.4-8.2); eGFR 46 ML/MIN
[2022-08-12 06:28] LABS: GLUCOSE 189 MG/DL (70-104)
--- NOTE | 2022-08-12 06:54 | NUR ---
Problems reprioritized. Patient report given, questions answered & plan of care reviewed with ROSA MAYES.
[2022-08-12] MEDS: docusate sod 100mg capsule PO SCH ×3 (08:00→22:40)
--- NOTE | 2022-08-12 08:02 | NUR ---
Paged Dr Anna: [place] [id number]. Pt reports no allergies to Tylenol nor Oxycodone, just Percocet (unable to change in system). Need PO pain med for breakthrough. [place]? Radha [phone]. Aside: Pedal pulse checks- strong, reenforced dressing clean, dry, intact. Addendum: 08/12/22 at 0853 by Radha Moody RN [phone]: Pulled 2mg morphine IVP and Zofran 4mg from Pyxis. crusher loader operator Nicole to scan and administer
[2022-08-12] MEDS ORDERED: morphine 2 MG/ML inj. syringe IV PRN (08:35)
[2022-08-12] MEDS: ondansetron/PF 4mg/2ml inj IV PRN ×2 (08:54→23:42)
[2022-08-12] MEDS: furosemide 20 MG/2 ML vial IV SCH ×2 (08:55→22:16)
[2022-08-12] MEDS ORDERED: cyclobenzaprine 10mg tablet PO SCH (09:25)
[2022-08-12] MEDS ORDERED: calcium carbonate 500mg chew tablet PO PRN (09:25)
[2022-08-12] MEDS: HYDROcodone/acetaminophen 5mg/325mg tablet PO PRN ×3 (10:35→22:17)
--- NOTE | 2022-08-12 15:58 | NUR ---
S/W Susanne REYES. Informed pt saturated dressing and was reenforced overnight. New bleedthrough marked on dressing and Susanne aware, will check dressing tomorrow.
[2022-08-12] MEDS: pregabalin 75mg capsule PO SCH (22:17)
[2022-08-12] MEDS: flecainide 50mg tablet PO SCH (22:17)
[2022-08-13] VITALS (10 sets, daily range): BP systolic 106–149; BP diastolic 55–68
[2022-08-13] MEDS: ceFAZolin/D5W- 1GM premix 50 ML IV SCH (00:20)
[2022-08-13] MEDS: HYDROcodone/acetaminophen 5mg/325mg tablet PO PRN ×3 (04:53→23:07)
--- NOTE | 2022-08-13 06:15 | NUR ---
Problems reprioritized. Patient report given, questions answered & plan of care reviewed with ROSA ROUSE.
[2022-08-13 08:24] LABS: BASOPHILS % (AUTO) 0.2 % (0-1); EOSINOPHILS # (AUTO) 0.1 X10'3 (0-0.9); EOSINOPHILS % (AUTO) 1.6 % (0-6); HEMATOCRIT 22.3 % (35.0-45.0); HEMOGLOBIN 7.2 g/dl (12.0-16.0); LYMPHOCYTES # (AUTO) 1.3 X10'3 (1.1-4.8); LYMPHOCYTES % (AUTO) 19.4 % (21-51); MEAN CORPUSCULAR HEMOGLOBIN 27.6 PG (27.0-31.0); MEAN CORPUSCULAR HGB CONC 32.4 g/dL (33.0-36.5); MEAN CORPUSCULAR VOLUME 85.3 FL (78-98); MEAN PLATELET VOLUME 8.7 FL (7.4-10.4); MONOCYTES # (AUTO) 0.5 X10'3 (0-0.9); MONOCYTES % (AUTO) 7.7 % (2-12); NEUTROPHILS # (AUTO) 4.7 X10'3 (1.8-7.7); NEUTROPHILS % (AUTO) 71.1 % (42-75); PLATELET COUNT 94 X10'3 (140-440); RED BLOOD COUNT 2.61 X10'6 (4.20-5.60); RED CELL DISTRIBUTION WIDTH 14.7 % (11.5-14.5); WHITE BLOOD COUNT 6.6 X10'3 (4.5-11.0)
[2022-08-13 08:46] LABS: ALANINE AMINOTRANSFERASE 25 U/L (12-78); ALBUMIN 2.3 G/DL (3.4-5.0); ALBUMIN/GLOBULIN RATIO 0.8 (1.1-1.5); ALKALINE PHOSPHATASE 143 IU/L (46-116); ANION GAP 3 (8-16); ASPARTATE AMINO TRANSFERASE 45 U/L (10-37); BILIRUBIN,TOTAL 0.5 MG/DL (0.1-1.0); BLOOD UREA NITROGEN 34 MG/DL (7-18); CALCIUM 7.9 MG/DL (8.5-10.1); CHLORIDE 103 MMOL/L (99-107); CREATININE 1.62 MG/DL (0.40-0.90); SODIUM 138 MMOL/L (135-145); TOTAL CARBON DIOXIDE 31.9 MMOL/L (24-32); TOTAL PROTEIN 5.2 G/DL (6.4-8.2); eGFR 30 ML/MIN
[2022-08-13 08:51] LABS: GLUCOSE 112 MG/DL (70-104)
[2022-08-13] MEDS: potassium chloride 10mEq ER tablet PO SCH (08:54)
[2022-08-13] MEDS: flecainide 50mg tablet PO SCH ×2 (08:54→20:24)
[2022-08-13] MEDS: cholecalciferol (vitamin D3) 1,000 unit (25mcg) tablet PO SCH (08:55)
[2022-08-13] MEDS ORDERED: HYDROcodone/acetaminophen 10/325mg tab PO PRN (08:55)
[2022-08-13] MEDS: pregabalin 75mg capsule PO SCH ×2 (08:55→20:24)
[2022-08-13] MEDS: multivitamins, therapeutics tablet PO SCH (08:55)
[2022-08-13] MEDS: valacyclovir 500mg tablet PO SCH (08:59)
[2022-08-13] MEDS: furosemide 20 MG/2 ML vial IV SCH (09:02)
--- NOTE | 2022-08-13 18:11 | NUR ---
Report given to Darcy LEE, all questions answered.
[2022-08-13] MEDS: furosemide 20MG tablet PO SCH (20:24)
[2022-08-13] MEDS: carVEDilol 3.125mg tablet PO SCH (20:24)
[2022-08-13] MEDS: docusate sod 100mg capsule PO SCH (20:24)
--- NOTE | 2022-08-13 23:39 | NUR ---
Problems reprioritized. Patient report given, questions answered & plan of care reviewed with ROSA EDWARDS.
--- NOTE | 2022-08-13 23:40 | NUR ---
Patient in room [facility]EL[facility] 356. I have received report from ROSA Taveras and had the opportunity to ask questions and assume patient care.
[2022-08-14 06:30] VITALS: BP 132/58
--- NOTE | 2022-08-14 06:30 | NUR ---
Problems reprioritized. Patient report given, questions answered & plan of care reviewed with ROSA Vigil.
--- NOTE | 2022-08-14 07:00 | NUR ---
Patient in room JAQUELINE 356. I have received report from lc LEE and had the opportunity to ask questions and assume patient care.
[2022-08-14 07:02] LABS: BASOPHILS % (AUTO) 0.3 % (0-1); EOSINOPHILS # (AUTO) 0.2 X10'3 (0-0.9); EOSINOPHILS % (AUTO) 2.5 % (0-6); HEMATOCRIT 25.2 % (35.0-45.0); HEMOGLOBIN 8.4 g/dl (12.0-16.0); LYMPHOCYTES # (AUTO) 1.4 X10'3 (1.1-4.8); LYMPHOCYTES % (AUTO) 18.4 % (21-51); MEAN CORPUSCULAR HEMOGLOBIN 28.7 PG (27.0-31.0); MEAN CORPUSCULAR HGB CONC 33.2 g/dL (33.0-36.5); MEAN CORPUSCULAR VOLUME 86.5 FL (78-98); MEAN PLATELET VOLUME 8.6 FL (7.4-10.4); MONOCYTES # (AUTO) 0.7 X10'3 (0-0.9); MONOCYTES % (AUTO) 8.8 % (2-12); NEUTROPHILS # (AUTO) 5.3 X10'3 (1.8-7.7); PLATELET COUNT 91 X10'3 (140-440); RED BLOOD COUNT 2.91 X10'6 (4.20-5.60); RED CELL DISTRIBUTION WIDTH 14.8 % (11.5-14.5); WHITE BLOOD COUNT 7.5 X10'3 (4.5-11.0)
[2022-08-14 07:09] LABS: ALANINE AMINOTRANSFERASE 14 U/L (12-78); ALBUMIN 1.7 G/DL (3.4-5.0); ALBUMIN/GLOBULIN RATIO 0.5 (1.1-1.5); ALKALINE PHOSPHATASE 122 IU/L (46-116); ANION GAP 7 (8-16); ASPARTATE AMINO TRANSFERASE 39 U/L (10-37); BILIRUBIN,TOTAL 0.7 MG/DL (0.1-1.0); BLOOD UREA NITROGEN 29 MG/DL (7-18); BUN/CREATININE RATIO 25.2 (6.6-38.0); CALCIUM 7.6 MG/DL (8.5-10.1); CHLORIDE 103 MMOL/L (99-107); CREATININE 1.15 MG/DL (0.40-0.90); GLUCOSE 103 MG/DL (70-104); POTASSIUM 4.1 MMOL/L (3.5-5.1); SODIUM 136 MMOL/L (135-145); eGFR 45 ML/MIN
[2022-08-14 07:30] VITALS: BP 137/64
[2022-08-14] MEDS ORDERED: lisinopril 2.5mg tablet PO SCH (08:00)
[2022-08-14] MEDS: furosemide 20MG tablet PO SCH (08:40)
[2022-08-14] MEDS: pregabalin 75mg capsule PO SCH (08:40)
[2022-08-14] MEDS: carVEDilol 3.125mg tablet PO SCH (08:40)
[2022-08-14] MEDS: docusate sod 100mg capsule PO SCH (08:40)
[2022-08-14] MEDS: potassium chloride 10mEq ER tablet PO SCH (08:40)
[2022-08-14] MEDS: flecainide 50mg tablet PO SCH (08:41)
[2022-08-14] MEDS: valacyclovir 500mg tablet PO SCH (08:42)
[2022-08-14] MEDS: cholecalciferol (vitamin D3) 1,000 unit (25mcg) tablet PO SCH (08:42)
[2022-08-14] MEDS: HYDROcodone/acetaminophen 5mg/325mg tablet PO PRN (08:46)
[2022-08-14] MEDS: multivitamins, therapeutics tablet PO SCH (08:46)
--- NOTE | 2022-08-14 09:00 | NUR ---
Theragran-M Tablet administered at 8:46am. Barcode on package was damaged so couldn't scan. I manually entered.
[2022-08-14 10:58] VITALS: BP 140/69
--- NOTE | 2022-08-14 11:49 | NUR ---
Student documentation: I have reviewed and agree with all interventions, assessments performed and documented by Serene student nurse.
--- NOTE | 2022-08-14 12:26 | NUR ---
Report given to student Nurse Bertha. Pt resting in bed and mild complaint of nausea. Very tired at this time.
--- NOTE | 2022-08-14 14:00 | NUR ---
Pt been DC to [facility], pt refused pictures to be taken. She does not want to be moved and go through the pain of been bother. is too much and she will NOT allow it. graciously decline pics.
--- NOTE | 2022-08-14 14:20 | NUR ---
Pt Dc to [facility]. Pt us A & o x4 and in no apparent distress. Pt notified she is going back to rehab. Family notified of her departure to [facility]. Pt refused pictures taken and to be medicated for the trip to [facility]. Pt grumpy and refused care. She is sweet but resistive to care. Change aware of refusal for pictures. Pt loaded into [employer] and taken to rehab.
--- NOTE | 2022-08-14 15:02 | NUR ---
PRESSURE ULCER EDUCATION: DEFINITION: A pressure ulcer is an area of skin that breaks down when you stay in one position too long. The constant pressure against the skin reduces the blood flow to that area and the affected tissue dies. CAUSES: "Being bedridden or in a wheelchair "Fragile skin "Having a chronic condition, such as diabetes or vascular disease "Inability to move certain parts of your body without assistance "Older age "Incontinence of urine or stool SYMPTOMS: "A reddened area that DOES NOT turn white when pressed on - this can be the beginning of a pressure ulcer "A blister, deep sore or a crater - these can be advanced pressure ulcers FIRST AID: "Relieve the pressure on this area "Keep the area clean and dry "Call your primary doctor if you see any of the above symptoms "DO NOT massage the area "DO NOT use a donut shaped or ring shaped pillow- these actually interfere with the blood flow and cause complications PREVENTION: "Check for pressure ulcers everyday "Change position at least every two hours to relieve pressure "Use items that help relieve pressure- pillows, sheepskin, foam padding, and powders. "Keep skin clean and dry "Eat healthy well balanced meals "Exercise daily IF YOU SEE ANY OF THESE SYMPTOMS WHILE IN THE HOSPITAL - TELL YOUR NURSE IMMEDIATELY. IF YOU SEE ANY OF THESE SYMPTOMS WHILE AT HOME OR HAVE ANY QUESTIONS OR CONCERNS ABOUT PRESSURE ULCERS - CALL YOUR PRIMARY DOCTOR IMMEDIATELY. Addendum: 08/14/22 at 1504 by Eun Rene RN Amended: Links added.
== END 2022-08-14 14:09 | DRG 480 ==
LOC: ER 02:47 → ED HOLD 04:04 → SUR 3N 05:13
PROVIDERS: ADMIT Internal Medicine; ATTEND Internal Medicine
PROC: 0QS736Z Reposition Left Upper Femur with Intramedullary Internal Fixation Device, Percutaneous Approach (ICD-10-PCS; principal; 2022-08-11 16:56)
PROC: 30233N1 Transfusion of Nonautologous Red Blood Cells into Peripheral Vein, Percutaneous Approach (ICD-10-PCS; 2022-08-13)
DX: S72.112A Displaced fracture of greater trochanter of left femur, initial encounter for closed fracture (principal); E43 Unspecified severe protein-calorie malnutrition; I50.23 Acute on chronic systolic (congestive) heart failure; D62 Acute posthemorrhagic anemia; I13.0 Hypertensive heart and chronic kidney disease with heart failure and stage 1 through stage 4 chronic kidney disease, or unspecified chronic kidney disease; N18.9 Chronic kidney disease, unspecified; W18.39XA Other fall on same level, initial encounter; Z60.2 Problems related to living alone; D69.6 Thrombocytopenia, unspecified; R79.89 Other specified abnormal findings of blood chemistry; E87.6 Hypokalemia; I48.0 Paroxysmal atrial fibrillation; Z79.899 Other long term (current) drug therapy; Z68.29 Body mass index [BMI] 29.0-29.9, adult; Z88.5 Allergy status to narcotic agent; Z90.49 Acquired absence of other specified parts of digestive tract; Y93.89 Activity, other specified; Y92.89 Other specified places as the place of occurrence of the external cause; Y99.8 Other external cause status
CPT/HCPCS: 36415; 36430; 73502; 76000; 80053; 81003; 82948; 83880; 85025; 85610; 86885; 86900; 86901; 86920; 87081; 93005; 93306; 97110; 97161; 97530; 99285; A4615; A4618; A6213; A6253; A6258; A6449; C1713; G0378; J0690; J1100; J1940; J2250; J2270; J2274; J2310; J2405; J2704; J3010; J3490; J7040; J7120; P9016; P9045; S0020

== ENCOUNTER 2024-12-07 11:10 | Day surgery (SDC) | payer MEDICARE ==
[~2024-12-07] VITALS: Ht 162.6 cm; Wt 83.2 kg
[2024-12-07] VITALS (16 sets, daily range): BP systolic 131–174; BP diastolic 72–88; PULSE 48–55; RESP 12–18; TEMP 98.2; O2SAT 97–100
[~2024-12-07 11:10] MED LIST changes: +ATOR10TA70 PO; -CHOL10002 PO; -FLEC100T2 PO; -HYDR-3973 PO; -HYDR25TA5 PO; +METH1TAB32 PO; +MULT-1085 PO; +ONDA-103 PO; +POTA-207 PO; -POTA10TA15 PO; +SACU1TAB4 PO; +SPIR25TA PO; +VITAMIN D3
[2024-12-07 12:42] LABS: BASOPHILS # (AUTO) 0.1 X10'3 (0-0.2); BASOPHILS % (AUTO) 0.9 % (0-1); EOSINOPHILS # (AUTO) 0.3 X10'3 (0-0.9); EOSINOPHILS % (AUTO) 4.3 % (0-6); HEMATOCRIT 36.8 % (35.0-45.0); HEMOGLOBIN 12.3 g/dl (12.0-16.0); LYMPHOCYTES # (AUTO) 1.4 X10'3 (1.1-4.8); MEAN CORPUSCULAR HEMOGLOBIN 29.7 PG (27.0-31.0); MEAN CORPUSCULAR HGB CONC 33.3 g/dL (33.0-36.5); MEAN PLATELET VOLUME 9.1 FL (7.4-10.4); MONOCYTES # (AUTO) 0.4 X10'3 (0-0.9); NEUTROPHILS # (AUTO) 4.6 X10'3 (1.8-7.7); NEUTROPHILS % (AUTO) 67.8 % (42-75); PLATELET COUNT 71 X10'3 (140-440); RED BLOOD COUNT 4.13 X10'6 (4.20-5.60); RED CELL DISTRIBUTION WIDTH 13.7 % (11.5-14.5); WHITE BLOOD COUNT 6.8 X10'3 (4.5-11.0)
[2024-12-07 12:51] LABS: ALBUMIN 3.4 G/DL (3.4-5.0); ANION GAP 6 (8-16); BLOOD UREA NITROGEN 30 MG/DL (7-18); BUN/CREATININE RATIO 21.6 (10.0-20.0); CALCIUM 8.8 MG/DL (8.5-10.1); CHLORIDE 107 MMOL/L (99-107); CREATININE 1.39 MG/DL (0.40-0.90); POTASSIUM 4.3 MMOL/L (3.5-5.1); SODIUM 141 MMOL/L (135-145); TOTAL CARBON DIOXIDE 27.9 MMOL/L (24-32); eCRCL 25 ML/MIN; eGFR 36 ML/MIN
[2024-12-07 12:55] LABS: APTT 46 SECONDS (22-32); INR 1.5 INR; PROTHROMBIN TIME 14.6 SECONDS (9.0-12.0)
[2024-12-07] MEDS: MIDAZolam 1mg/ml 10ml vial IV ONE (13:03)
[2024-12-07] MEDS: fentaNYL/PF 50MCG/1 ML 2ML syringe IV ONE (13:03)
[2024-12-07] MEDS: normal saline 1000ml 1,000 ML IV SCH (13:04)
[2024-12-07 13:05] LABS: GLUCOSE 88 MG/DL (70-104)
[2024-12-07] MEDS ORDERED: CLOP75TA34 PO (13:16)
[2024-12-07] MEDS ORDERED: ASPI81TA52 PO (13:16)
--- NOTE | 2024-12-07 19:56 | CARDIOLOGY REPORT ---
APPROVED REPORT EXAM: Focused, limited transesophageal echocardiogram with color flow Doppler and 3D imaging. Patient Location: RECOVERY Blood Pressure: 170/80 mmHg Heart Rate: 60s bpm Rhythm: ATRIAL FIBRILLATION Indications POST WATCHMAN FLX ROBIN CLOSURE DEVICE IMPLANTATION FOLLOW UP EVALUATE DEVICE FOR THROMBUS, POSITION, AND SEAL 27 mm WATCHMAN FLX ROBIN CLOSURE DEVICE 10/28/24 [facility] probe passed by: Reinaldo Leyva MD Java Web User Interface Developer: Reinaldo Leyva MD Previous echo: 10/29/24 [facility] (EF 65-70%, medium sized L to R shunt s/p transseptal puncture, mild AI, trace MR, mod TR, no pericardial effusion) LEFT VENTRICLE Normal LV size and wall thickness. Overall systolic function is normal. LVEF is 55-60%. RIGHT VENTRICLE RV appears moderately dilated with normal systolic function. ATRIA LA is moderately dilated. Intact interatrial septum with small L to R shunt s/p transseptal puncture and medium sized L to R PFO. Left upper pulmonary vein identified. Successfully occluded left atrial appendage with well visualized Watchman device well positioned without thrombus. No significant resid ual flow detected around device in all views. PERICARDIUM Normal pericardium. No effusion. CONCLUSION Normal LV size and wall thickness. Overall systolic function is normal. LVEF is 55-60%. RV appears mo derately dilated with normal systolic function. LA is moderately dilated. Intact interatrial septum w ith small L to R shunt s/p transseptal puncture and medium sized L to R PFO. Left upper pulmonary vei n identified. Successfully occluded left atrial appendage with well visualized Watchman device well p ositioned without thrombus. No significant residual flow detected around device in all views. Normal pericardium. No effusion. Conclusion Normal LV size and wall thickness. Overall systolic function is normal. LVEF is 55-60%. RV appears moderately dilated with normal systolic function. LA is moderately dilated. Intact interatrial septum with small L to R shunt s/p transseptal puncture and medium sized L to R PFO. Left upper pulmonary vein identified. Successfully occluded left atri al appendage with well visualized Watchman device well positioned without thrombus. No significant residual flow detected around device in all views. Normal pericardium. No effusion.
== END 2024-12-07 14:00 | disposition home or self-care (01) ==
LOC: SSTAY O 11:10 → EDSTATUS 13:30 → SSTAY O 14:00
PROVIDERS: ATTEND Student in an Organized Health Care Education/Training Program
DX: I48.91 Unspecified atrial fibrillation (principal); I10 Essential (primary) hypertension; I35.0 Nonrheumatic aortic (valve) stenosis; Z86.73 Personal history of transient ischemic attack (TIA), and cerebral infarction without residual deficits
CPT/HCPCS: 80048; 85025; 85610; 85730; 93312; 93325; 94760; J2250; J3010; J7030